=== PATIENT | female | born 1985 ===

== ENCOUNTER 2017-05-16 17:18 | Inpatient (IN) | payer OTHER ==
[~2017-05-16] VITALS: Ht 160 cm; Wt 83.6 kg
[2017-05-16] MEDS ORDERED: CIPRO 500MG TA500 MG PO ×2 (18:25→18:36)
[2017-05-16] MEDS ORDERED: FLAGYL500 MG PO (18:36)
[2017-05-16] MEDS ORDERED: KLONOPIN 1MG1 MG PO (18:37)
[2017-05-16] MEDS ORDERED: CELEXA 20MG20 MG/TAB PO (18:38)
[2017-05-16] MEDS ORDERED: IMURAN 50MG TAB50 MG PO (18:38)
[2017-05-16 19:30] VITALS: BP 123/64; PULSE 92; TEMP 100.5
[2017-05-16 21:10] VITALS: TEMP 100.3
[2017-05-16 23:14] VITALS: BP 111/66; PULSE 94; TEMP 98.6
[2017-05-17 02:51] LABS: PH 6 (5-8); URINE APPEARANCE Clear; URINE BACTERIA Rare /hpf; URINE BILIRUBIN Negative (NEGATIVE); URINE BLOOD 1+ (NEGATIVE); URINE COLOR Yellow; URINE GLUCOSE Negative (NEGATIVE); URINE KETONE 1+ (NEGATIVE); URINE RBC 0-2 /hpf; URINE UROBILINOGEN Negative (NEGATIVE)
[2017-05-17 03:37] VITALS: BP 117/70; PULSE 96; TEMP 98.4
[2017-05-17 03:48] VITALS: BP 111/58; PULSE 87; TEMP 97.9
[2017-05-17 06:55] LABS: MEAN CELL VOLUME 94 fl (80.0-100.0); MEAN CORPUSCULAR HGB CONC 34 g/dl (33.0-37.0); MEAN PLATELET VOLUME 10.2 fl (7.4-10.4); PLATELET COUNT 175 K/mm3 (130-400); RED BLOOD COUNT 3.43 M/mm3 (4.10-5.30); REDCELL DISTRIBUTION WIDTH-CV 17.1 % (11.5-14.5); WHITE BLOOD COUNT 2.9 K/mm3 (4.8-10.8)
[2017-05-17 06:58] LABS: HEMATOCRIT 32.1 % (37.0-47.0); HEMOGLOBIN 10.9 g/dl (12.5-16.0); MEAN CORPUSCULAR HEMOGLOBIN 32 pg (27.0-31.0)
[2017-05-17 07:08] LABS: ADJUSTED CALCIUM 9.1 mg/dL (8.4-10.2); BILIRUBIN,TOTAL 0.4 mg/dL (0.0-1.0); CALCIUM 8.3 mg/dL (8.4-10.2); CREATININE, serum 0.56 mg/dL (0.52-1.25); POTASSIUM 3.5 mmol/L (3.4-5.0); TOTAL PROTEIN 6.1 gm/dL (6.4-8.2)
[2017-05-17 07:37] LABS: BAND 6 % (0-10); BASOPHIL 1 % (0-2); EOSINOPHIL 2 % (0-4); NEUTROPHILS 3 % (42.0-75.2); PLATELET ESTIMATE NORMAL (NORMAL); TOTAL CELLS COUNTED 100
[2017-05-17 07:42] LABS: ADD PATHOLOGY DIFF REVIEW YES
[2017-05-17 08:31] VITALS: BP 107/59; PULSE 84; TEMP 98.9
[2017-05-17 12:06] VITALS: BP 109/62; PULSE 80; TEMP 97.3
[2017-05-17 15:21] VITALS: BP 100/58; PULSE 88; TEMP 97.4
[2017-05-17 20:11] VITALS: BP 110/67; PULSE 97; TEMP 98.4
[2017-05-17 20:30] LABS: HIV 1/2 Antibodies Non-Reactive; HIV-1p24 Antigen Non-Reactive
[2017-05-18 03:15] VITALS: BP 108/62; PULSE 64; TEMP 97
[2017-05-18 07:48] VITALS: BP 100/52; PULSE 113; TEMP 98.9
[2017-05-18 11:34] LABS: ADD PATHOLOGY DIFF REVIEW NO
[2017-05-18 11:39] LABS: MEAN CELL VOLUME 93 fl (80.0-100.0); MEAN CORPUSCULAR HGB CONC 34 g/dl (33.0-37.0); MEAN PLATELET VOLUME 10.2 fl (7.4-10.4); PLATELET COUNT 272 K/mm3 (130-400); RED BLOOD COUNT 3.65 M/mm3 (4.10-5.30); REDCELL DISTRIBUTION WIDTH-CV 17.1 % (11.5-14.5); WHITE BLOOD COUNT 2.8 K/mm3 (4.8-10.8)
[2017-05-18 11:41] LABS: HEMATOCRIT 34.1 % (37.0-47.0); HEMOGLOBIN 11.6 g/dl (12.5-16.0); MEAN CORPUSCULAR HEMOGLOBIN 32 pg (27.0-31.0)
[2017-05-18 12:10] VITALS: BP 117/66; PULSE 76; TEMP 97.8
[2017-05-18 12:12] LABS: BAND 1 % (0-10); BASOPHIL 1 % (0-2); EOSINOPHIL 2 % (0-4); NEUTROPHILS 12 % (42.0-75.2); TOTAL CELLS COUNTED 100
[2017-05-18 12:13] LABS: PLATELET ESTIMATE NORMAL (NORMAL)
[2017-05-18] MEDS ORDERED: TYLENOL 325MG325 MG PO (13:03)
[2017-05-18] MEDS ORDERED: OMNICEF 300MG300 MG PO (13:04)
[2017-05-19 09:11] LABS: PATHOLOGY DIFF REVIEW OK
== END 2017-05-18 15:15 | disposition home or self-care (01) | DRG 809 ==
LOC: MEDICAL 17:18
PROVIDERS: Internal Medicine; Internal Medicine Infectious Disease; Nurse Practitioner Family
DX: D70.9 Neutropenia, unspecified (principal); K50.90 Crohn's disease, unspecified, without complications; N39.0 Urinary tract infection, site not specified; R50.81 Fever presenting with conditions classified elsewhere; F41.9 Anxiety disorder, unspecified
CPT/HCPCS: 99222-AI; 99239; G0378; J0692; J1650; J7030